=== PATIENT | female | born 1960 | race African-American/Black ===

== ENCOUNTER 2016-10-28 16:51 | Emergency (ER) | payer OTHER ==
[~2016-10-28] VITALS: Ht 167.6 cm; Wt 90.0 kg
[~2016-10-28 16:51] MED LIST: ATEN-102 PO; CLON-352 PO; CLON.5 PO; CYCL1PAK PO; GABA100C4 PO; HYDR-2768 PO; IBUP600T26 PO; LORA0.5T PO; OXYB5TAB PO; POTA10IN2 PO; TRAM50 PO; TRAZ50TA4 PO
[2016-10-28 16:53] VITALS: BP 212/114; PULSE 114; RESP 17; TEMP 99.7; O2SAT 97
[2016-10-28 17:11] VITALS: BP 174/101; PULSE 95; RESP 18; TEMP 99.7; O2SAT 98
--- NOTE | 2016-10-28 17:27 | PD ---
HPI Chief Complaint: Cold / Flu Symptoms Time Seen by Provider: 17:13 Travel History International Travel<30 days: No Contact w/Intl Traveler<30days: No Traveled to known affect area: No History of Present Illness HPI Is is a 56 year old female history of hypertension, presents here with face of cough and congestion. Patient states that last month she had upper respiratory infection. She states she took Coricidin and it improved. She states 3 days ago she started sprinting cough. She reports congestion and body aches. She denies any fevers, chills. There is no production and her cough. PFSH Past Medical History Arthritis: No Blood Disorders: No Anxiety: No Depression: Yes Cancer: No Cardiovascular Problems: Yes High Cholesterol: No Chemotherapy: No Chest Pain: No Congestive Heart Failure: No Endocrine: No Genitourinary: No Hypertension: Yes Immune Disorder: No Implanted Vascular Access Dvce: No Musculoskeletal: Yes (CHRONIC BACK PAIN) Neurologic: No Psychiatric: Yes Reproductive: No Respiratory: No Myocardial Infarction: No Radiation Therapy: No Influenza Vaccination: No Tubal Ligation: Yes Past Surgical History Abdominal Surgery: No Cardiac Surgery: No Ear Surgery: No Endocrine Surgery: No Eye Surgery: No Genitourinary Surgery: No Gynecologic Surgery: Yes (TUBAL LIGATION RIGHT BREAST BX WITH LUMPECTOMY) Hysterectomy: Yes Neurologic Surgery: No Oral Surgery: No Thoracic Surgery: No Other Surgery: Yes (RIGHT BREAST LUMPECTOMY) Social History Alcohol Use: Yes (VERY RARELY) Tobacco Use: No Substance Use: No Allergies-Medications (Allergen,Severity, Reaction): Coded Allergies: No Known Allergies (Verified , 09/16/14) Reported Meds & Prescriptions Reported Meds & Active Scripts Active Cefuroxime (Cefuroxime Axetil) 500 Mg Tab 500 Mg PO BID Guaifenesin AC Liq (Guaifenesin-Codeine Liq) 100-10 Mg/5 Ml Syrp 5 Ml PO Q6H PRN Klonopin (Clonazepam) 0.5 Mg Tab 0.5 Mg PO BID Ultram (Tramadol HCl) 50 Mg Tab 1 Tab PO Q6HPRN FOR PAIN Reported Trazodone Hcl (Trazodone HCl) 50 Mg Tab 50 Mg PO HS Oxybutynin Chloride Er (Oxybutynin Chloride) 5 Mg Tab 5 Mg PO BID Gabapentin 100 Mg Cap 200 Mg PO TID Atenolol 50 Mg Tab 50 Mg PO DAILY Potassium Chloride 10 Meq Tab 20 Meq PO BID Lorazepam 0.5 Mg Tab 0.5 Mg PO BID Clonidine HCl ER (Clonidine HCl (Adhd)) 0.1 Mg Tab 0.1 Mg PO TID Ibuprofen 600 Mg Tab 600 Mg PO Q8H PRN Cyclobenzaprinepax 10 & 0.0375-5 mg & % (Ngxvbmbeajjkswe-Lmykkxoty-Lstk) 10 Mg Tab 10 Mg PO BID Hctz (Hydrochlorothiazide) 25 Mg Tab 50 Mg PO DAILY Review of Systems Except as stated in HPI: all other systems reviewed are Neg General / Constitutional: No: Fever, Chills HENT: Positive: Headaches (mild), No: Neck Pain Cardiovascular: No: Chest Pain or Discomfort, Palpitations Respiratory: Positive: Cough, No: Shortness of Breath Gastrointestinal: No: Nausea, Vomiting Musculoskeletal: Positive: Myalgias, No: Weakness Neurologic: Positive: Headache (mild), No: Weakness Physical Exam Narrative GENERAL: Well-nourished, well-developed patient. SKIN: Focused skin assessment warm/dry. HEAD: Normocephalic last atraumatic. EYES: No scleral icterus. No injection or drainage. NECK: Supple, trachea midline. CARDIOVASCULAR: Regular rate and rhythm without murmurs, gallops, or rubs. RESPIRATORY: Breath sounds equal bilaterally. No accessory muscle use. GASTROINTESTINAL: Abdomen soft, non-tender, nondistended. MUSCULOSKELETAL: No cyanosis, or edema. BACK: Nontender without obvious deformity. No CVA tenderness. Data Data Last Documented VS Vital Signs Date Time Temp Pulse Resp B/P Pulse Ox O2 Delivery O2 Flow Rate FiO2 10/28/16 19:00 98.9 78 17 165/96 97 Room Air Orders Influenzae A/B Antigen (10/28/16 17:21) Iv Access Insert/Monitor (10/28/16 17:21) Ecg Monitoring (10/28/16 17:21) Oximetry (10/28/16 17:21) Oxygen Administration (10/28/16 17:21) Chest, Single Ap (10/28/16 17:21) Sodium Chloride 0.9% Flush (Ns Flush) (10/28/16 17:30) Ibuprofen (Motrin) (10/28/16 17:30) MDM Medical Decision Making Medical Screen Exam Complete: Yes Emergency Medical Condition: Yes Differential Diagnosis Viral URI versus influenza versus bronchitis Narrative Course 66-year-old female who presents with cough congestion and body aches. The patient has likely viral syndrome. Influenza is negative. She'll be given a prescription for cefuroxime and guaifenesin before meals. She is instructed to not drive or drink alcohol while taking the cough syrup. Working diagnosis is bronchitis. Diagnosis Primary Impression: Bronchitis Additional Instructions: Do not drive or drink alcohol while taking the cough syrup Scripts Cefuroxime 500 Mg [id number] Mg PO BID #14 TAB Ref 0 Prov:Rafi Griggs MD 10/28/16 Guaifenesin-Codeine Liq (Guaifenesin AC Liq)100-10 Mg/5 Ml Syrp5 Ml PO Q6H PRN ( COUGH) #1 BOTTLE Ref 0 Prov:Rafi Griggs MD 10/28/16 Disposition: 01 DISCHARGE HOME Condition: Stable Rafi Griggs MD Oct 28, 2016 17:27
[2016-10-28] MEDS ORDERED: IBUPROFEN 600 MG TAB PO ONE (17:30)
[2016-10-28] MEDS ORDERED: SODIUM CHLORIDE 0.9% FLUSH 10 ML FLUSH IVF PRN (17:30)
[2016-10-28 17:48] VITALS: RESP 18; O2SAT 99
--- NOTE | 2016-10-28 17:51 | RADRPT ---
EXAM DATE/TIME: 10/28/2016 17:37 [facility] COMPARISON: No previous studies available for comparison. INDICATIONS : Cold symptoms and cough for three days. MEDICAL HISTORY : None. SURGICAL HISTORY : None. ENCOUNTER: Initial ACUITY: 3 days PAIN SCORE: 0/10 LOCATION: Bilateral chest FINDINGS: A single view of the chest demonstrates the lungs to be symmetrically aerated without evidence of mas s, infiltrate or effusion. The cardiomediastinal contours are unremarkable. Osseous structures are intact. CONCLUSION: No acute disease. Sami Still MD on October 28, 2016 at 17:49 Board Certified Radiologist. This report was verified electronically.
[2016-10-28 19:00] VITALS: BP 165/96; PULSE 78; RESP 17; TEMP 98.9; O2SAT 97
[2016-10-28] MEDS ORDERED: GUAISYP4 PO (19:10)
[2016-10-28] MEDS ORDERED: CEFU1TAB20 PO (19:17)
== END 2016-10-28 19:26 | disposition home or self-care (01) ==
LOC: NEPD 16:51
DX: J40 Bronchitis, not specified as acute or chronic (principal); M79.1 Myalgia; I10 Essential (primary) hypertension; Z86.79 Personal history of other diseases of the circulatory system; Z87.39 Personal history of other diseases of the musculoskeletal system and connective tissue; Z86.59 Personal history of other mental and behavioral disorders
CPT/HCPCS: 71010; 87804; 99283